=== PATIENT | male | born 1995 | race Caucasian/White ===

== ENCOUNTER 2017-09-29 23:11 | Emergency (ER) | payer BC, OTHER ==
[~2017-09-29] VITALS: Ht 185.4 cm; Wt 77.1 kg
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
[2017-09-30 01:02] VITALS: BP 129/84
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
== END 2017-09-30 01:02 | disposition home or self-care (01) ==
LOC: ER 23:16
DX: S09.90XA Unspecified injury of head, initial encounter (principal); S01.312A Laceration without foreign body of left ear, initial encounter; S16.1XXA Strain of muscle, fascia and tendon at neck level, initial encounter; S00.83XA Contusion of other part of head, initial encounter; S99.922A Unspecified injury of left foot, initial encounter; R40.2142 Coma scale, eyes open, spontaneous, at arrival to emergency department; R40.2252 Coma scale, best verbal response, oriented, at arrival to emergency department; R40.2362 Coma scale, best motor response, obeys commands, at arrival to emergency department; F17.210 Nicotine dependence, cigarettes, uncomplicated; Z90.89 Acquired absence of other organs; Y04.8XXA Assault by other bodily force, initial encounter
CPT/HCPCS: 70450; 70486; 72125

== ENCOUNTER 2018-12-24 05:15 | Emergency (ER) | payer OTHER ==
[~2018-12-24] VITALS: Ht 185.4 cm; Wt 72.7 kg
--- NOTE | 2018-12-24 05:42 | ED Upper Extremity ---
General Chief Complaint: Upper Extremity Stated Complaint: SMASHED LEFT INDEX FINGER Source: patient Exam Limitations: no limitations (BRIAN DALE) History of Present Illness Date Seen by Provider: Dec 24, 2018 Time Seen by Provider: 05:24 Initial Comments Patient presents to ER by private conveyance from work with chief complaint that he smashed his left index finger while lifting up a 12 inch piece of plastic pipe and it fell back down onto his outstretched finger. He still has the ability to flex and extend entirely but is having some significant pain. He is not taking anything for. No previous injury to this finger. He is not on blood thinners. He does not have any numbness or tingling. He says he had a tetanus vaccination last year. This occurred at 0 400, hour and a half prior to arrival. (BRIAN DALE) Allergies and Home Medications Allergies Coded Allergies: No Known Drug Allergies (Unverified , 09/29/17) Patient Home Medication List Home Medication List Reviewed: Yes (BRIAN DALE) Review of Systems Constitutional: No chills, No diaphoresis EENTM: No hearing loss, No ear pain Respiratory: No cough, No short of breath (BRIAN DALE) Past Ippyekm-Xbreoy-Cyndte Hx Patient Social History Alcohol Use: Occasionally Uses Alcohol Beverage of Choice: Beer Recreational Drug Use: No Smoking Status: Current Everyday Smoker Type Used: Cigarettes 2nd Hand Smoke Exposure: Yes Recent Foreign Travel: No Contact w/Someone Who Travel: No Recent Hopitalizations: No (BRIAN DALE) Immunizations Up To Date Tetanus Booster (TDap): Less than 5yrs (BRIAN DALE) Seasonal Allergies Seasonal Allergies: No (BRIAN DALE) Past Medical History Surgeries: Yes Adenoidectomy, Tonsillectomy Respiratory: No Cardiac: No Neurological: No Genitourinary: No Gastrointestinal: No Musculoskeletal: No Endocrine: No HEENT: Yes (S/P T&A) Tonsilitis Cancer: No Psychosocial: No Integumentary: No Blood Disorders: No (BRIAN DALE) Physical Exam Vital Signs Vital Signs - First Documented 12/24/18 05:37 Temp 36.4 Pulse 87 Resp 18 B/P (MAP) 127/96 (106) Pulse Ox 100 O2 Delivery Room Air (KATIE DUBON MD) Vital Signs Capillary Refill : (BRIAN DALE) Height, Weight, BMI Height: 6'1.00" Weight: 170lbs. oz. 77.796533lo; BMI Method:Stated General Appearance: WD/WN, mild distress Cardiovascular: normal peripheral pulses, regular rate, rhythm Respiratory: no respiratory distress, no accessory muscle use Elbow/Forearm: normal inspection, non-tender, no evidence of injury, normal ROM, Left Wrist: Yes normal inspection, Yes non-tender, Yes no evidence of injury, Yes normal ROM Hand: Left, swelling (full range of motion of the index finger. There is a horseshoe shaped laceration approximately 2 cm long on the palmar side of the middle phalanges and a linear laceration over the distal phalange dorsal side.) Neurologic/Psychiatric: no motor/sensory deficits, alert, normal mood/affect, oriented x 3 Skin: normal color, warm/dry (BRIAN DALE) Procedures/Interventions Wound Location: Upper Extremities Other Wound Location Left index finger Wound Length (cm): 2.5 Wound's Depth, Shape: flap Wound Explored: contaminated Irrigated w/ Saline (ccs): 250 Betadine Prep?: Yes Anesthesia: 1% Lidocaine Volume Anesthetic (ccs): 5 Wound Debrided: minimal Suture: Ethlion Suture Size: 4-0 Number of Sutures: 6 Layer Closure?: 1 Number Deep Layer Sutures: 0 Sterile Dressing Applied?: Yes (KATIE DUBON MD) Progress/Results/Core Measures Results/Orders Vital Signs/I&O 12/24/18 05:37 Temp 36.4 Pulse 87 Resp 18 B/P (MAP) 127/96 (106) Pulse Ox 100 O2 Delivery Room Air (KATIE DUBON MD) Progress Progress Note : Time: 05:41 Progress Note Soaking the finger and chlorhexidine soap water. Plan to do a digital block followed by thorough cleanout. X-ray of the fingers. Then sutured him appropriately. (BRIAN DALE) Progress Note : Progress Note 0615: Assumed care at patient from Dr. Dale pending x-ray. 0645: I have repeated exam of the finger and reapply digital block. Suture repair completed. Antibiotic ointment and tube gauze dressing placed. Discharged home with return precautions. Patient verbalize understanding instructions and agreement with plan. (KATIE DUBON MD) Diagnostic Imaging Diagonstic Imaging: Xray Plain Films/CT/US/NM/MRI: other Comments NAME: TON[facility] K[facility] REC#: [id number] PT STATUS: REG ER : 1995 PHYSICIAN: BRIAN DALE MD ADMIT DATE: 12/24/18/ER Signed Date of Exam: 12/24/18 FINGER(S) INDICATION: Finger injury, trauma COMPARISON: None. FINDINGS: 3 views of the left hand and 2nd digit demonstrate no fracture or dislocation. Articular surfaces are normal. Soft tissue swelling is present. There is no underlying foreign body. IMPRESSION: No fracture or dislocation. Dictated by: Dictated on workstation # [id number] Dict: 12/24/18617 Trans: 12/24/18629 Interpreted by: TAMI CHAUDHARY Electronically signed by: TAMI CHAUDHARY 12/24/18629 (KATIE DUBON MD) Transfer of Care Time: 06:05 Care transferred to: Dr. Dubon (BRIAN DALE) Departure Impression Primary Impression: Laceration of left index finger Qualified Codes: S61.211A - Laceration without foreign body of left index finger without damage to nail, initial encounter Disposition: 01 HOME, SELF-CARE Condition: Improved Departure-Patient Inst. Decision time for Depature: 06:47 (KATIE DUBON MD) Referrals: NO,LOCAL PHYSICIAN (PCP/Family) Primary Care Physician Patient Instructions: Laceration Repair With Stitches (DC) Add. Discharge Instructions: All discharge instructions reviewed with patient and/or family. Voiced understanding. You may take ibuprofen 600 mg every 8 hours as needed for pain. You may take Tylenol/acetaminophen 1000 mg every 8 hours as needed for pain. Keep dressing in place for 2 days and then return for dressing change and recheck. You may do that at the emergency department or at occupational health. Call occupational health today for appointment. Sutures out in 10-12 days. Keep dressing clean and dry. Protect wound from further injury until healed. Return for worse pain, fever, foul-smelling drainage, red streaks up the hand or arm or other concerns as needed. BRIAN DALE Dec 24, 2018 05:42 KATIE DUBON MD Dec 24, 2018 06:50
--- NOTE | 2018-12-24 06:20 | Diagnostic Imaging Report ---
INDICATION: Finger injury, trauma COMPARISON: None. FINDINGS: 3 views of the left hand and 2nd digit demonstrate no fracture or dislocation. Articular surfaces are normal. Soft tissue swelling is present. There is no underlying foreign body. IMPRESSION: No fracture or dislocation. Dictated by: Dictated on workstation # [id number]
[2018-12-24 06:55] VITALS: BP 127/96
== END 2018-12-24 06:55 | disposition home or self-care (01) ==
LOC: EDUNIT# 05:15 → ER 05:21
DX: S61.211A Laceration without foreign body of left index finger without damage to nail, initial encounter (principal); F17.210 Nicotine dependence, cigarettes, uncomplicated; Z90.89 Acquired absence of other organs; W23.1XXA Caught, crushed, jammed, or pinched between stationary objects, initial encounter
CPT/HCPCS: 73140